=== PATIENT | female | born 1955 | race Caucasian/White ===

== ENCOUNTER 2022-05-10 10:53 | Emergency (ER) | payer OTHER ==
[~2022-05-10] VITALS: Ht 162.6 cm; Wt 89.8 kg
[2022-05-10 11:55] VITALS: BP_SYST 133
[2022-05-10 15:53] VITALS: BP_SYST 131
== END 2022-05-10 15:54 | disposition home or self-care (01) ==
LOC: SED 10:53
DX: S00.83XA Contusion of other part of head, initial encounter (principal); M25.561 Pain in right knee; I10 Essential (primary) hypertension; E11.9 Type 2 diabetes mellitus without complications; W18.39XA Other fall on same level, initial encounter; Y93.89 Activity, other specified; Y92.89 Other specified places as the place of occurrence of the external cause; Y99.0 Civilian activity done for income or pay
CPT/HCPCS: 70450-TC; 72125-TC; 73564; 76376; 99284